=== PATIENT | male | born 1980 | race Caucasian/White ===

== ENCOUNTER 2018-06-13 13:46 | Emergency (ER) | payer OTHER ==
[~2018-06-13] VITALS: Ht 167.6 cm; Wt 65.8 kg
[~2018-06-13 13:46] MED LIST: HYDROCODONE BIT1 T11 PO; LOMOTIL 0.025 M1 TA1 PO; LOMOTIL 0.025 M1 TAB PO; PHENERGAN25 M1 PO; PROTONIX40 MG PO; ZOFRAN ODT4 MG SL
[2018-06-13] MEDS ORDERED: PREDNISONE10 MG PO (14:43)
== END 2018-06-13 14:55 | disposition home or self-care (01) ==
LOC: ED 13:46
DX: R20.2 Paresthesia of skin (principal); R20.0 Anesthesia of skin

== ENCOUNTER → 2019-09-28 | Outpatient (CLI) | payer OTHER ==
[~2019-09-28] MED LIST changes: +PREDNISONE10 MG PO
[2019-09-28 13:30] LABS: BASO # 0.1 10*3/uL (0.0-0.1); BASO % 1.1 % (0.0-1.0); EOS # 0.6 10*3/uL (0.0-0.4); EOS % 8.5 % (1.0-4.0); HEMATOCRIT 48.6 % (42.0-52.0); HEMOGLOBIN 16.3 g/dl (14.0-18.0); MEAN CORPUSCULAR HGB 30.9 pg (27.0-31.0); MEAN CORPUSCULAR HGB CONC 33.5 g/dl (33.0-37.0); MONO # 0.8 10*3/uL (0.1-1.0); MONO % 11.4 % (3.0-9.0); NEUT # 2.6 10*3/uL (2.3-7.9); NEUT % 36.7 % (47.0-73.0); PLATELET COUNT AUTOMATED 347 10*3/uL (130-400); RED BLOOD COUNT 5.28 10*6/uL (4.50-5.90); RED CELL DISTRI WIDTH 12.1 % (0-14.5); WHITE BLOOD COUNT 7.1 10*3/uL (4.8-10.8)
[2019-09-28 13:51] LABS: ALBUMIN 4.2 gm/dl (3.1-4.5); ALKALINE PHOSPHATASE 77 U/L (45-117); BUN 11 mg/dl (7-24); CHLORIDE 101 mmol/L (98-107); CHOLESTEROL 156 mg/dL (<200); CREATININE 0.95 mg/dL (0.70-1.30); HDL CHOLESTEROL 65 mg/dl (40-60); LDL CHOLESTEROL 79 mg/dL (9-159); POTASSIUM 4.4 mmol/L (3.5-5.1); SGOT/AST 17 IU/L (3-35); SGPT/ALT 29 U/L (12-78); SODIUM 137 mmol/L (136-145); TOTAL PROTEIN 7.6 gm/dL (6.4-8.2); TRIGLYCERIDES 60 mg/dl (<150); VLDL CHOLESTEROL 12 mg/dL (6-40)
== END | disposition home or self-care (01) ==
LOC: LAB 12:55
PROVIDERS: Registered Nurse Psychiatric/Mental Health
DX: F10.99 Alcohol use, unspecified with unspecified alcohol-induced disorder (principal)

== ENCOUNTER 2020-01-25 12:37 | Inpatient (IN) | payer OTHER ==
[~2020-01-25] VITALS: Ht 167.6 cm; Wt 59.0 kg
[2020-01-25 12:53] VITALS: BP 113/67
[2020-01-25 13:49] LABS: BASO # 0.1 10*3/uL (0.0-0.1); BASO % 0.8 % (0.0-1.0); EOS # 0.3 10*3/uL (0.0-0.4); EOS % 2.8 % (1.0-4.0); HEMATOCRIT 46.2 % (42.0-52.0); HEMOGLOBIN 15.6 g/dl (14.0-18.0); LYMPH # 2.8 10*3/uL (1.3-4.4); LYMPH % 30.4 % (27.0-41.0); MEAN CORPUSCULAR HGB 31.1 pg (27.0-31.0); MEAN CORPUSCULAR HGB CONC 33.8 g/dl (33.0-37.0); MEAN PLATELET VOLUME 10.5 fl (9.6-12.3); MONO # 0.9 10*3/uL (0.1-1.0); MONO % 9.3 % (3.0-9.0); NEUT # 5.2 10*3/uL (2.3-7.9); NEUT % 56.5 % (47.0-73.0); PLATELET COUNT AUTOMATED 322 10*3/uL (130-400); RED BLOOD COUNT 5.02 10*6/uL (4.50-5.90); RED CELL DISTRI WIDTH 13.1 % (0-14.5); WHITE BLOOD COUNT 9.2 10*3/uL (4.8-10.8)
[2020-01-25 14:03] LABS: ALBUMIN 3.8 gm/dl (3.1-4.5); ALKALINE PHOSPHATASE 85 U/L (45-117); BUN 6 mg/dl (7-24); CHLORIDE 105 mmol/L (98-107); CREATININE 1.06 mg/dL (0.70-1.30); ETHYL ALCOHOL < 3.0 mg/dl (<3); POTASSIUM 3.7 mmol/L (3.5-5.1); SGOT/AST 16 IU/L (3-35); SGPT/ALT 23 U/L (12-78); SODIUM 139 mmol/L (136-145); TOTAL PROTEIN 7.4 gm/dL (6.4-8.2)
[2020-01-25 14:08] LABS: URINE AMPHETAMINES < 1000 (1000ng/ml); URINE BARBITURATES < 200 (200ng/ml); URINE BENZODIAZEPINES < 200 (200ng/ml); URINE CANNABINOIDS (THC) > 50 (50ng/ml); URINE COCAINE < 300 (300ng/ml); URINE METHADONE < 300 (300ng/ml); URINE OPIATES < 300 (300ng/ml); URINE PHENCYCLIDINE < 25 (25ng/ml)
[2020-01-25 14:15] LABS: CLARITY CLEAR (CLEAR); COLOR YELLOW (YELLOW)
[2020-01-25 14:16] LABS: BACTERIA TRACE; BILIRUBIN 1+ (NEGATIVE); BLOOD NEGATIVE (NEGATIVE); GLUCOSE NEGATIVE (NEGATIVE); KETONE NEGATIVE (NEGATIVE); LEUKO ESTERASE NEGATIVE (NEGATIVE); MUCOUS 2+; NITRITE NEGATIVE (NEGATIVE); UROBILINOGEN 0.2 E.U./dl (0.2-1.0); WBC 0-2 wbc/hpf (0-5)
[2020-01-25 15:24] VITALS: BP 118/82
--- NOTE | 2020-01-25 15:24 | NUR ---
PATIENT MEETS [facility]. PATIENT WANTS TO FOLLOW UP WITH OUTPATIENT TREATMENT AT [facility]. RON AMIN B.A. IT ENGINEER
--- NOTE | 2020-01-25 15:24 | NUR ---
A 39, admitted to , under the services of KASSANDRA Payne DO with a diagnosis of ALCOHOL ABUSE. Chief complaint is ALCOHOL ABUSE. Patient arrived via wheel chair from ER. Monitor applied. Initial assessment completed. Vital signs taken and recorded. KASSANDRA PAYNE DO notified of admission to the unit. Orders received. See assessment for past medical history, medications and allergies. Patient and/or family oriented to unit. [address] visitation policy reviewed. Clothing/patient valuable form completed. PT TO THE FLOOR AT THIS TIME WITH HIS BELONGINGS. RESTING IN BED. REQUESTING NICOTINE PATCH. NO COMPLAINTS. CALL LIGHT WITHIN REACH. RONNIE KNIGHT
--- NOTE | 2020-01-25 19:00 | NUR ---
ASSUMED CARE FOR THIS PT AT THIS TIME. PT DENIES ANY S/S OF WITHDRAWAL AND NONE NOTED. PT AMBULATING IN HALLWAY.
[2020-01-25 20:00] VITALS: BP 107/55
[2020-01-26] VITALS: BP 92/64
--- NOTE | 2020-01-26 01:41 | NUR ---
24 HR chart check completed.
--- NOTE | 2020-01-26 03:52 | NUR ---
PT MEDICATED W/IBUPROFEN FOR C/O H/A.
[2020-01-26 08:00] VITALS: BP 126/70
--- NOTE | 2020-01-26 08:30 | NUR ---
PT RESTING IN BED EATING BREAKFAST. RESP-EASY AND REGULAR. TOLERATED ROUTINE MED WITH NO PROBLEM. NO C/O AT THIS TIME. CALL LIGHT IN REACH. SEE SHIFT ASSESSMENT.
--- NOTE | 2020-01-26 10:00 | NUR ---
RESTING IN BED. NO C/O AT THIS TIME. CALL LIGHT IN REACH.
--- NOTE | 2020-01-26 11:37 | NUR ---
[facility] STAFF IN TO SEE PATIENT. PATIENT REPORTS THAT HE WILL BE FOLLOWING UP WITH HIS SPONSOR AND ALSO WANTS TO RETURN TO [facility] FOR HIS AFTERCARE PLAN. [facility] STAFF WILL SCHEDULE HIS APPOINTMENT AND ALSO PROVIDE HIM WITH A LIST OF AA/NA MEETINGS AND ALSO LOCAL GROUPS THAT HE COULD ATTEND. RON AMIN B.A. OVEN WORKER
--- NOTE | 2020-01-26 11:47 | NUR ---
CALLED RON AT [facility] AWARE PT WANTING TO TALK WITH HER.
[2020-01-26 12:00] VITALS: BP 104/66
--- NOTE | 2020-01-26 12:05 | NUR ---
[facility] STAFF SET UP APPOINTMENT FOR PATIENT WITH [facility]. PATIENT'S APPOINTMENT IS SCHEDULED FOR January AT 12:00PM WITH HIS CURRENT COUNSELOR. PATIENT ALSO REPORT THAT HE WILL BE ALSO FOLLOWING UP WITH [facility] TO PARTICIPATE IN THEIR GROUPS. RON AMIN B.A. HELPDESK SPECIALIST
--- NOTE | 2020-01-26 14:00 | NUR ---
PT RESTING IN BED. NO C/O AT THIS TIME. CALL LIGHT IN REACH.
[2020-01-26 16:00] VITALS: BP 112/67
--- NOTE | 2020-01-26 17:45 | NUR ---
MEDICATED WITH SENOKOT PO PER PT REQUEST FOR CONSTIPATION. CALL LIGHT IN REACH.
[2020-01-26 20:00] VITALS: BP 114/64
--- NOTE | 2020-01-26 20:10 | NUR ---
AMBULATORY TO BATHROOM AND BACK TO BED. RESP-EASY AND REGULAR. NO C/O AT THIS TIME. CALL LIGHT IN REACH. SEE SHIFT ASSESSMENT.
--- NOTE | 2020-01-26 22:00 | NUR ---
RESTING IN BED. RESP-EASY AND REGULAR. CALL LIGHT IN REACH.
--- NOTE | 2020-01-26 23:25 | NUR ---
PT RESTING IN BED. NO COMPLAINTS AT THIS TIME. ASSESSMENT COMPLETE. RESPIRATIONS EASY AND REGULAR. CALL LIGHT WITHIN REACH. WILL CONTINUE TO MONITOR.
[2020-01-27] VITALS: BP 107/62
--- NOTE | 2020-01-27 02:23 | NUR ---
PT STATES HE USUALLY MOVES HIS BOWELS EVERDAY AND HASN'T MOVED THEM SINCE THE DAY BEFORE YESTERDAY AND FEELS THIS MAY BE FROM THE DRINKING BECAUSE THIS HAPPENS WHEN HE DRINKS. MEDICATED WITH PRN SENOKOT AT THIS TIME. WILL MONITOR EFFECTIVENES.
[2020-01-27 08:00] VITALS: BP 108/69
--- NOTE | 2020-01-27 08:10 | NUR ---
PT AMBULATORY INTO BATHROOM AND BACK TO BED. EATING BREAKFAST. NO C/O AT THIS TIME. CALL LIGHT IN REACH. SEE SHIFT ASSESSMENT.
--- NOTE | 2020-01-27 12:31 | NUR ---
Nutritional Support Services Note: Appetite is good for meals, he is eating 100%. Albumin is 3.8. Ht.5'6 Wt.130# IBW 142#. Pt is 12# underweight but does not show any signs of malnutrition at this time. Will provide pt with a night snack. Regular diet is appropriate. Adele Tobin Rdn Ld
[2020-01-27 12:51] VITALS: BP 109/68
[2020-01-27 16:00] VITALS: BP 116/69
--- NOTE | 2020-01-27 16:00 | NUR ---
RESTING IN BED. RESP-EASY AND REGULAR. NO C/O AT THIS TIME. CALL LIGHT IN REACH. SEE SHIFT ASSESSMENT.
--- NOTE | 2020-01-27 16:05 | NUR ---
[place] STAFF IN TO SEE PATIENT. PATIENT IS GOING TO FOLLOW UP WITH PSYCARE FOR HIS AFTERCARE. PATIENT AGREES AND UNDERSTANDS HIS AFTERCARE PLAN. 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
--- NOTE | 2020-01-27 19:48 | NUR ---
PATIENT RESTING IN BED WITH EYES CLOSED. RESPS EASY AND REGULAR. ARROUSES EASILY. DENIES NEEDS AT THIS TIME. BED IN LOWEST POSITION, CALL LIGHT IN REACH
[2020-01-27 20:00] VITALS: BP 115/74
--- NOTE | 2020-01-27 23:53 | NUR ---
IV HEP LOCK REMOVED PER PATIENT REQUEST. NO BLEEDING NOTED. CATHETER INTACT. PATIENT TOLERATED WELL
[2020-01-28] VITALS: BP 109/68
[2020-01-28 06:38] LABS: BASO # 0.1 10*3/uL (0.0-0.1); BASO % 0.8 % (0.0-1.0); EOS # 0.7 10*3/uL (0.0-0.4); EOS % 6.7 % (1.0-4.0); HEMATOCRIT 44.8 % (42.0-52.0); HEMOGLOBIN 14.7 g/dl (14.0-18.0); LYMPH # 3.4 10*3/uL (1.3-4.4); LYMPH % 34.7 % (27.0-41.0); MEAN CELL VOLUME 92.2 fl (80.0-94.0); MEAN CORPUSCULAR HGB 30.2 pg (27.0-31.0); MEAN CORPUSCULAR HGB CONC 32.8 g/dl (33.0-37.0); MEAN PLATELET VOLUME 11.2 fl (9.6-12.3); MONO % 10.7 % (3.0-9.0); NEUT # 4.6 10*3/uL (2.3-7.9); NEUT % 46.9 % (47.0-73.0); PLATELET COUNT AUTOMATED 283 10*3/uL (130-400); RED BLOOD COUNT 4.86 10*6/uL (4.50-5.90); RED CELL DISTRI WIDTH 12.8 % (0-14.5); WHITE BLOOD COUNT 9.7 10*3/uL (4.8-10.8)
[2020-01-28 06:45] LABS: CREATININE 0.95 mg/dL (0.70-1.30)
--- NOTE | 2020-01-28 07:19 | NUR ---
Shift chart check completed.
[2020-01-28 08:00] VITALS: BP 119/74
--- NOTE | 2020-01-28 09:06 | NUR ---
Patient resting. Responding to scheduled medications with fewer complaints of pain and anxiety. NICOTINE PATCH REPLACED
[2020-01-28] MEDS ORDERED: ATARAX,VISTARIL50 MG PO (10:24)
--- NOTE | 2020-01-28 11:25 | NUR ---
Discharge instructions reviewed with patient/family. Patient receptive and verbalizes understanding. Follow-up care arranged. Written instructions given to patient/family. FARZANA FOX
--- NOTE | 2020-01-28 11:34 | NUR ---
PATIENT AMBULATED OUT
== END 2020-01-28 11:34 | disposition home or self-care (01) | DRG 775 ==
LOC: ED 12:37 → EDHOLD 14:36 → 4E 14:36
PROVIDERS: Nurse Practitioner Family; ADMIT Internal Medicine
DX: F10.239 Alcohol dependence with withdrawal, unspecified (principal); R73.9 Hyperglycemia, unspecified; F17.210 Nicotine dependence, cigarettes, uncomplicated; R82.2 Biliuria; F12.10 Cannabis abuse, uncomplicated

== ENCOUNTER 2020-02-08 05:48 | Emergency (ER) | payer OTHER ==
[~2020-02-08] VITALS: Ht 167.6 cm; Wt 53.1 kg
[~2020-02-08 05:48] MED LIST changes: +ATARAX,VISTARIL50 MG PO
== END 2020-02-08 06:47 | disposition home or self-care (01) ==
LOC: ED 05:48
DX: T69.8XXA Other specified effects of reduced temperature, initial encounter (principal); F17.210 Nicotine dependence, cigarettes, uncomplicated; Z88.6 Allergy status to analgesic agent

== ENCOUNTER 2020-03-11 22:18 | Emergency (ER) | payer OTHER ==
[~2020-03-11] VITALS: Ht 175.2 cm; Wt 56.7 kg
[2020-03-11 22:43] LABS: BILIRUBIN NEGATIVE (NEGATIVE); BLOOD NEGATIVE (NEGATIVE); CLARITY CLEAR (CLEAR); COLOR YELLOW (YELLOW); GLUCOSE NEGATIVE (NEGATIVE); KETONE NEGATIVE (NEGATIVE); LEUKO ESTERASE NEGATIVE (NEGATIVE); NITRITE NEGATIVE (NEGATIVE); SPECIFIC GRAVITY 1.005 (1.005-1.030); UROBILINOGEN 0.2 E.U./dl (0.2-1.0)
[2020-03-11 22:47] LABS: RBC 0-2 rbc/hpf (0-2); WBC 0-2 wbc/hpf (0-5)
[2020-03-11 22:48] LABS: BASO # 0.1 10*3/uL (0.0-0.1); BASO % 0.9 % (0.0-1.0); EOS % 8.5 % (1.0-4.0); HEMATOCRIT 48.3 % (42.0-52.0); LYMPH # 4.2 10*3/uL (1.3-4.4); LYMPH % 36.2 % (27.0-41.0); MEAN CELL VOLUME 90.1 fl (80.0-94.0); MEAN CORPUSCULAR HGB CONC 34.4 g/dl (33.0-37.0); MONO # 1.3 10*3/uL (0.1-1.0); MONO % 11.1 % (3.0-9.0); PLATELET COUNT AUTOMATED 337 10*3/uL (130-400); RED BLOOD COUNT 5.36 10*6/uL (4.50-5.90); RED CELL DISTRI WIDTH 12.5 % (0-14.5); WHITE BLOOD COUNT 11.7 10*3/uL (4.8-10.8)
[2020-03-11 22:51] LABS: URINE AMPHETAMINES < 1000 (1000ng/ml); URINE BARBITURATES < 200 (200ng/ml); URINE BENZODIAZEPINES < 200 (200ng/ml); URINE CANNABINOIDS (THC) > 50 (50ng/ml); URINE COCAINE < 300 (300ng/ml); URINE METHADONE < 300 (300ng/ml); URINE OPIATES < 300 (300ng/ml)
[2020-03-11 22:59] LABS: BUN 6 mg/dl (7-24); CHLORIDE 105 mmol/L (98-107); CREATININE 0.69 mg/dL (0.70-1.30); POTASSIUM 3.9 mmol/L (3.5-5.1); SODIUM 137 mmol/L (136-145)
[2020-03-11 23:04] LABS: ACETAMINOPHEN (TYLENOL) < 5.0 ug/ml (10-30); URINE PHENCYCLIDINE < 25 (25ng/ml)
== END 2020-03-12 10:10 | disposition home or self-care (01) ==
LOC: ED 22:18
PROVIDERS: Emergency Medicine Emergency Medical Services
DX: F10.10 Alcohol abuse, uncomplicated (principal); F17.200 Nicotine dependence, unspecified, uncomplicated; Z88.8 Allergy status to other drugs, medicaments and biological substances; Z79.899 Other long term (current) drug therapy

== ENCOUNTER 2020-07-09 23:16 | Emergency (ER) | payer OTHER ==
[~2020-07-09] VITALS: Ht 165.1 cm; Wt 74.4 kg
[2020-07-09 23:42] LABS: BASO # 0.1 10*3/uL (0.0-0.1); BASO % 0.7 % (0.0-1.0); EOS % 8.1 % (1.0-4.0); HEMATOCRIT 48.6 % (42.0-52.0); LYMPH # 4.1 10*3/uL (1.3-4.4); LYMPH % 34.3 % (27.0-41.0); MEAN CELL VOLUME 90.2 fl (80.0-94.0); MEAN CORPUSCULAR HGB CONC 34.4 g/dl (33.0-37.0); MEAN PLATELET VOLUME 10.3 fl (9.6-12.3); MONO # 1.2 10*3/uL (0.1-1.0); MONO % 9.9 % (3.0-9.0); NEUT # 5.6 10*3/uL (2.3-7.9); NEUT % 46.7 % (47.0-73.0); PLATELET COUNT AUTOMATED 299 10*3/uL (130-400); RED BLOOD COUNT 5.39 10*6/uL (4.50-5.90); RED CELL DISTRI WIDTH 12.5 % (0-14.5); WHITE BLOOD COUNT 11.9 10*3/uL (4.8-10.8)
[2020-07-09 23:54] LABS: BUN 6 mg/dl (7-24); CHLORIDE 106 mmol/L (98-107); CREATININE 0.73 mg/dL (0.70-1.30); POTASSIUM 3.5 mmol/L (3.5-5.1); SODIUM 139 mmol/L (136-145)
[2020-07-09 23:55] LABS: ACETAMINOPHEN (TYLENOL) < 3.0 ug/ml (10-30)
[2020-07-10 00:05] LABS: BILIRUBIN NEGATIVE (NEGATIVE); BLOOD NEGATIVE (NEGATIVE); CLARITY CLEAR (CLEAR); COLOR STRAW (YELLOW); GLUCOSE NEGATIVE (NEGATIVE); KETONE NEGATIVE (NEGATIVE); LEUKO ESTERASE NEGATIVE (NEGATIVE); NITRITE NEGATIVE (NEGATIVE); PH 6.5 (5.0-9.0); SPECIFIC GRAVITY 1.005 (1.005-1.030); UROBILINOGEN 0.2 E.U./dl (0.2-1.0)
[2020-07-10 00:10] LABS: URINE AMPHETAMINES < 1000 (1000ng/ml); URINE BARBITURATES < 200 (200ng/ml); URINE BENZODIAZEPINES < 200 (200ng/ml); URINE CANNABINOIDS (THC) > 50 (50ng/ml); URINE COCAINE < 300 (300ng/ml); URINE METHADONE < 300 (300ng/ml); URINE OPIATES < 300 (300ng/ml)
[2020-07-10 00:11] LABS: BACTERIA TRACE; EPITHELIAL CELLS 0-2; RBC 0-2 rbc/hpf (0-2); WBC 0-2 wbc/hpf (0-5)
[2020-07-10 00:13] LABS: URINE PHENCYCLIDINE < 25 (25ng/ml)
== END 2020-07-10 09:41 | disposition home or self-care (01) ==
LOC: ED 23:16
PROVIDERS: Emergency Medicine
DX: F43.21 Adjustment disorder with depressed mood (principal); F10.20 Alcohol dependence, uncomplicated; Z88.6 Allergy status to analgesic agent; Y90.9 Presence of alcohol in blood, level not specified

== ENCOUNTER 2020-07-26 20:50 | Emergency (ER) | payer OTHER ==
[2020-07-26 21:25] LABS: BASO # 0.1 10*3/uL (0.0-0.1); BASO % 0.5 % (0.0-1.0); EOS # 0.7 10*3/uL (0.0-0.4); EOS % 5.5 % (1.0-4.0); HEMATOCRIT 47.3 % (42.0-52.0); LYMPH # 3.6 10*3/uL (1.3-4.4); LYMPH % 29.3 % (27.0-41.0); MEAN CELL VOLUME 88.9 fl (80.0-94.0); MEAN CORPUSCULAR HGB 30.5 pg (27.0-31.0); MEAN CORPUSCULAR HGB CONC 34.2 g/dl (33.0-37.0); MEAN PLATELET VOLUME 10.5 fl (9.6-12.3); MONO # 1.4 10*3/uL (0.1-1.0); MONO % 11.4 % (3.0-9.0); NEUT # 6.5 10*3/uL (2.3-7.9); NEUT % 53.1 % (47.0-73.0); PLATELET COUNT AUTOMATED 324 10*3/uL (130-400); RED BLOOD COUNT 5.32 10*6/uL (4.50-5.90); RED CELL DISTRI WIDTH 12.2 % (0-14.5); WHITE BLOOD COUNT 12.3 10*3/uL (4.8-10.8)
[2020-07-26 21:39] LABS: ALBUMIN 4.1 gm/dl (3.1-4.5); ALKALINE PHOSPHATASE 84 U/L (45-117); BUN 10 mg/dl (7-24); CHLORIDE 105 mmol/L (98-107); CREATININE 0.77 mg/dL (0.70-1.30); POTASSIUM 3.1 mmol/L (3.5-5.1); SGOT/AST 14 IU/L (3-35); SGPT/ALT 22 U/L (12-78); SODIUM 138 mmol/L (136-145); TOTAL PROTEIN 7.9 gm/dL (6.4-8.2)
[2020-07-26 21:40] LABS: ACETAMINOPHEN (TYLENOL) < 5.0 ug/ml (10-30)
[2020-07-27 00:10] LABS: BILIRUBIN NEGATIVE; BLOOD NEGATIVE (NEGATIVE); CLARITY CLEAR (CLEAR); COLOR YELLOW (YELLOW); GLUCOSE NEGATIVE; KETONE NEGATIVE; LEUKO ESTERASE NEGATIVE (NEGATIVE); NITRITE NEGATIVE (NEGATIVE)
[2020-07-27 00:16] LABS: URINE AMPHETAMINES < 1000 (1000ng/ml); URINE BARBITURATES < 200 (200ng/ml); URINE BENZODIAZEPINES < 200 (200ng/ml); URINE CANNABINOIDS (THC) > 50 (50ng/ml); URINE COCAINE < 300 (300ng/ml); URINE METHADONE < 300 (300ng/ml); URINE OPIATES < 300 (300ng/ml); URINE PHENCYCLIDINE < 25 (25ng/ml)
[2020-07-27 00:23] LABS: RBC 0-2 rbc/hpf (0-2); WBC 0-2 wbc/hpf (0-5)
[2020-07-27] MEDS ORDERED: 'CLONIDINE0.1 MG PO (05:13)
== END 2020-07-27 11:56 | disposition home or self-care (01) ==
LOC: ED 20:50
PROVIDERS: Emergency Medicine
DX: F10.129 Alcohol abuse with intoxication, unspecified (principal); R45.851 Suicidal ideations; F17.200 Nicotine dependence, unspecified, uncomplicated; Z79.899 Other long term (current) drug therapy; Z88.8 Allergy status to other drugs, medicaments and biological substances; Y90.6 Blood alcohol level of 120-199 mg/100 ml

== ENCOUNTER 2020-07-29 16:55 | Emergency (ER) | payer OTHER ==
[~2020-07-29 16:55] MED LIST changes: +'CLONIDINE0.1 MG PO
== END 2020-07-29 18:18 | disposition home or self-care (01) ==
LOC: ED 16:55
DX: S60.221A Contusion of right hand, initial encounter (principal); Z88.8 Allergy status to other drugs, medicaments and biological substances; Z79.899 Other long term (current) drug therapy; W50.0XXA Accidental hit or strike by another person, initial encounter; Y93.89 Activity, other specified; Y92.89 Other specified places as the place of occurrence of the external cause; Y99.8 Other external cause status